=== PATIENT | male | born 1950 | race Caucasian/White ===

== ENCOUNTER 2024-01-13 08:36 | Outpatient (OUT) | payer MEDICARE, SELFPAY ==
--- NOTE | 2024-01-13 08:47 | CT_ITS ---
[address] [address] Patient Name: PATEL MILLER MRN: [id number] date: 1950 Sex: M Assigned Patient Location: CT Current Patient Location: CT Accession/Order Number: [id number] Exam Date: 01/13/2024 08:49 Report Date: 01/13/2024 12:51 At the request of: ANDRIY RAHMAN Procedure: CT lung screening low-dose EXAMINATION: CT lung screening low-dose HISTORY: Nicotine Dependence COMPARISON: 04/19/2020 TECHNIQUE: Axial, Coronal, and Sagittal images were created without the administration of IV contrast material.Dose reduction techniques were achieved by using automated exposure control and/or adjustment of mA and/or kV according to patient size and/or use of iterative reconstruction technique. FINDINGS: LUNGS: Interval increase in size of a now 6.8 mm pulmonary nodule medial basilar segment left lower lobe axial image 123 previously measuring 4 mm. Area of groundglass opacity noted in the right lower lobe measuring 1.1 cm, axial image 98, stable. Linear opacity in the lingula likely atelectasis and/or scar, stable PLEURA: No mass, effusion, or pneumothorax. VASCULATURE: No abnormality. NANCY: No mass or pathologic adenopathy. MEDIASTINUM: No mass or pathologic adenopathy. CARDIAC: No enlargement or pericardial effusion CORONARY ARTERIES: Coronary calcifications are moderate. AORTA: No aortic aneurysm. Mild to moderate calcific atherosclerosis CHEST WALL: No mass or axillary adenopathy BONES: No bone lesion or fracture. LIMITED ABDOMEN: No suspicious findings. Limited images of the upper abdomen. OTHER: Negative. CT/CT lung screening low-dose IMPRESSION: Interval increase in size of a now 6.8 mm left lower lobe pulmonary nodule previously 4 mm. Short interval follow-up is recommended. This lesion is likely not amenable to percutaneous biopsy and is too small to be visualized by PET scan LUNG SCREENING: Lung-RADS Category 3- Probably benign. Probably benign finding(s)- short term follow up suggested; includes nodules with a low likelihood of becoming a clinically active cancer. Six month LDCT. Electronically authenticated by: BENEDICTO EUBANKS Date: 01/13/2024 12:51
== END 2024-01-13 08:37 | disposition home or self-care (01) ==
LOC: CT 08:36
PROVIDERS: PCP Internal Medicine; Visit Provider Internal Medicine
DX: Z87.891 Personal history of nicotine dependence (principal)
CPT/HCPCS: 71271

== ENCOUNTER 2025-03-02 07:38 | Outpatient (OUT) | payer MEDICARE, SELFPAY ==
--- OUTSIDE RECORDS SUMMARY | 2025-03-02 07:42 | XMS_ITS | CCD ---
Author Organization [facility]ini[facility] Care Team Providers Care Ad Taker Name Role Phone LACEY, DR ASHRAF Admitting Unavailable VALONE, DR ASHRAF Attending Unavailable VALONE, DR ASHRAF Primary Care Unavailable VALONE, DR ASHRAF Consulting Unavailable ZIEBER, DR HARSHAD Mendieta Consulting Unavailable JARRELL RAHMAN Referring Unavailable JARRELL RAHMAN Primary Care Unavailable Lacey JRJarrell Primary Care Provider Germain MONOGRAM MAKER-CRosemary Attending Provider Jay Garsia MD Attending Provider Jay Garsia MD Admit Provider Jay Garsia MD Other Provider [phone] Jarrell Rahman Primary Care Unavailable Rosemary Groves Attending Unavailable Rosemary Groves Admitting Unavailable Jay Garsia Attending Unavailable Jay Garsia Admitting Unavailable Jarrell Rahman Primary Care Unavailable Jay Garsia Attending Unavailable Jay Garsia Admitting Unavailable Jarrell Rahman Primary Care Unavailable Allergies Allergy Classification Reported Allergen(s) Allergy Type Date of Onset Reaction(s) Facility (1 source) Bacitracin / Neomycin / Polymyxin B Drug Allergy 5 [facility] (1 source) Sulfonamides (Antibiotic) Drug allergy (disorder) 5 [facility] (1 source) ALLERGIES NOT ON FILE; Translations: [ALLERGIES NOT ON FILE] Propensity to adverse reactions (disorder) [facility] Repository (1 source) Bacitracin Drug Allergy 5 [facility] (3 sources) Neomycin; Translations: [neomycin] Drug Allergy 5 [facility] (3 sources) Sulfonamides (Antibiotic); Translations: [Sulfa (Sulfonamide Antibiotics)] Allergy to substance 5 [facility] (3 sources) polymyxin B; Translations: [polymyxin B] Allergy to substance 5 [facility] Medications Current Medications Medication Drug Class(es) Dates Sig (Normalized) Sig (Original) cholecalciferol 0.125 mg oral tablet (2 sources) Vitamin D Start: 02-10-2025 take 1 tablet by mouth every other day Cholecalciferol (Vitamin D3) (Vitamin D3) 125 mcg (5,000 unit) tablet Active 125 MCG PO .every other day February 10, 2025 12:00am Complies with drug therapy famotidine 20 mg oral tablet (2 sources) Histamine-2 Receptor Antagonist Start: 02-10-2025 take 1 tablet by mouth once daily as needed Famotidine 20 mg tablet Active 20 MG PO Daily as needed for acid reflux February 10, 2025 12:00am Complies with drug therapy montelukast 10 mg oral tablet (2 sources) Leukotriene Receptor Antagonist Start: 02-10-2025 take 1 tablet by mouth once daily as needed Montelukast 10 mg tablet Active 10 MG PO Daily as needed for allergy symptoms February 10, 2025 12:00am Complies with drug therapy olmesartan medoxomil 40 mg oral tablet (5 sources) Angiotensin 2 Receptor Kendrick Start: 01-18-2025 Olmesartan 40 mg tablet Active 20 MG PO Every morning January 18, 2025 12:00am Complies with drug therapy Start: 01-18-2025 Olmesartan 40 mg tablet Active MG PO January 18, 2025 12:00am Complies with drug therapy 60 actuat tiotropium 0.0025 mg/actuat inhalation spray (2 sources) Anticholinergic Start: 02-10-2025 take 1 puff(s) by inhalation once daily as needed for chronic obstructive pulmonary disease Tiotropium [place] (Spiriva Respimat) 2.5 mcg/actuation mist Active 2 PUFF INHALATION Daily as needed for copd February 10, 2025 12:00am Complies with drug therapy Problems Problem Classification Problem Date Documented Date Episodic/Chronic Aortic; peripheral; and visceral artery aneurysms (11 sources) Abdominal aortic aneurysm; Translations: [Abdominal aortic aneurysm (AAA)] 01-18-2025 Chronic Chronic obstructive pulmonary disease and bronchiectasis (5 sources) Chronic obstructive lung disease; Translations: [Chronic obstructive pulmonary disease, unspecified] 01-18-2025 Chronic Disorders of lipid metabolism (7 sources) Pure hypercholesterolemia, unspecified; Translations: [Hypercholesterolemia ] Onset: 11-20-2024 Chronic Essential hypertension (5 sources) Hypertensive disorder; Translations: [Essential (primary) hypertension] 01-18-2025 Chronic Osteoarthritis (5 sources) Osteoarthritis; Translations: [Unspecified osteoarthritis, unspecified site] 01-18-2025 Chronic Osteoporosis (9 sources) Age-related osteoporosis without current pathological fracture; Translations: [Senile osteoporosis] Onset: 06-04-2022 Chronic Other nutritional; endocrine; and metabolic disorders (5 sources) Obesity; Translations: [Obesity, unspecified] 01-18-2025 Chronic Residual codes; unclassified (1 source) History of cardiovascular surgery; Translations: [Other specified postprocedural states] 02-25-2025 Episodic Screening and history of mental health and substance abuse codes (8 sources) Ex-smoker; Translations: [Personal history of nicotine dependence] 01-18-2025 Episodic Unclassified (1 source) Please call the office to reschedule this appointment if this time does not work for you. Please call with any questions or concerns. Thank you. Unclassified (1 source) Abdominal aortic aneurysm, without rupture, unspecified; Translations: [Abdominal aortic aneurysm, without rupture, unspecified] Onset: 02-01-2025 Results Test Name Value Interpretation Reference Range Facility Basic Metabolic Panelon 01-30 Anion gap [Moles/Vol] 12.1 mmol/L Normal 6.0-15.0 [facility] Comment on above: Performed By: #### C BC, BMP #### [facility] [address] [id number] [place] Calcium [Mass/Vol] 8.4 mg/dL Low 8.6-10.3 [facility] Comment on above: Performed By: #### C BC, BMP #### [facility] [address] [id number] [place] Chloride [Moles/Vol] 106 mmol/L Normal 98-107 [facility] Comment on above: Performed By: #### C BC, BMP #### [address] CO2 [Moles/Vol] 21.0 mmol/L Normal 21.0-31.0 [facility] Comment on above: Performed By: #### C BC, BMP #### [address] Creatinine [Mass/Vol] 1.14 mg/dL Normal 0.70-1.30 [facility] Comment on above: Performed By: #### C BC, BMP #### [place] [address] [place] Creatinine Clr Calc Pharmacy 62.38 Normal [facility] Comment on above: Result Comment: PERF ORMED BY: [place] [address] PATHOLOGIST PRESS CLEANER ZAIRA JENSEN M.D. Performed By: #### C BC, BMP #### [address] GFR/1.73 sq M.predicted MDRD (S/P/Bld) [Vol rate/Area] mL/min/{1.73_m2} Normal [facility] Comment on above: Performed By: #### C BC, BMP #### [address] Glucose [Mass/Vol] 97 mg/dL Normal 70-100 [facility] Comment on above: Result Comment: [place] Glucose Reference Range is dependent on time and content of last meal. Glucose of more than 200 mg/dL in a nonstressed, ambulatory subject supports the diagnosis of Diabetes Mellitus. ADA recommended reference range Performed By: #### C BC, BMP #### [place] [address] [place] Potassium [Moles/Vol] 4.1 mmol/L Normal 3.5-5.1 [facility] Comment on above: Performed By: #### C BC, BMP #### [place] [address] [place] Sodium [Moles/Vol] 135 mmol/L Low 136-145 [facility] Comment on above: Performed By: #### C BC, BMP #### [address] Urea nitrogen [Mass/Vol] 17 mg/dL Normal 7-25 [facility] Comment on above: Performed By: #### C BC, BMP #### [address] Complete Blood Count Auto Di ffon 02-25-2025 Basophils (Bld) [#/Vol] 0.1 10*3/uL Normal 0.0-0.2 [facility] Comment on above: Result Comment: PERF ORMED BY: [place] [address] PATHOLOGIST PRESS CLEANER ZAIRA JENSEN M.D. Performed By: #### C BC, BMP #### [address] Basophils/100 WBC (Bld) 0.7 % Normal . [facility] Comment on above: Performed By: #### C BC, BMP #### [address] Eosinophils (Bld) [#/Vol] 0.0 10*3/uL Normal 0.0-0.45 [facility] Comment on above: Performed By: #### C BC, BMP #### [address] Eosinophils/100 WBC (Bld) 0.3 % Normal . [facility] Comment on above: Performed By: #### C BC, BMP #### [address] Erythrocyte distribution width (RBC) [Ratio] 13.2 % Normal 12.0-14.8 [facility] Comment on above: Performed By: #### C BC, BMP #### [address] Hematocrit (Bld) [Volume fraction] 34.8 % Low 38.8-50.0 [facility] Comment on above: Performed By: #### C BC, BMP #### [facility] [address] Hemoglobin (Bld) [Mass/Vol] 11.8 g/dL Low 13.0-17.0 [facility] Comment on above: Performed By: #### C BC, BMP #### [address] Lymphocytes (Bld) [#/Vol] 1.8 10*3/uL Normal 1.00-4.8 [facility] Comment on above: Performed By: #### C BC, BMP #### [facility] [address] Lymphocytes/100 WBC (Bld) 14.5 % Normal . [facility] Comment on above: Performed By: #### C BC, BMP #### [address] MCH (RBC) [Entitic mass] 32.2 pg Normal 27.5-35.2 [facility] Comment on above: Performed By: #### C BC, BMP #### [address] MCV (RBC) [Entitic vol] 94.8 fL Normal 83.5-101 [facility] Comment on above: Performed By: #### C BC, BMP #### [address] Mean Corpuscular HGB Conc 34.0 g/dL Normal 32.5-35.6 [facility] Comment on above: Performed By: #### C BC, BMP #### [address] Monocytes (Bld) [#/Vol] 1.0 10*3/uL High 0.0-0.8 [facility] Comment on above: Performed By: #### C BC, BMP #### [place] [address] [place] Monocytes/100 WBC (Bld) 8.3 % Normal . [facility] Comment on above: Performed By: #### C BC, BMP #### [facility] [address] [place] [address] [place] Neutrophils (Bld) [#/Vol] 9.5 10*3/uL High 1.8-7.7 [facility] Comment on above: Performed By: #### C BC, BMP #### [facility] [address] [place] [address] [place] Neutrophils/100 WBC (Bld) 76.2 % Normal . [facility] Comment on above: Performed By: #### C TIEN, BMP #### [facility] [address] [place] [address] [place] NRBC% 0.1 /100{WBC} Normal 0-0.[address] [facility] Comment on above: Performed By: #### C TIEN, BMP #### [place] [address] [place] Platelet mean volume (Bld) [Entitic vol] 7.1 fL Normal 6.6-10.1 [facility] Comment on above: Performed By: #### C TIEN, BMP #### [facility] [address] [place] [address] [place] Platelets (Bld) [#/Vol] 271 10*3/uL Normal 150-450 [facility] Comment on above: Performed By: #### C TIEN, BMP #### [place] [address] [place] RBC (Bld) [#/Vol] 3.67 10*6/uL Low 3.90-5.60 [facility] Comment on above: Performed By: #### C TIEN, BMP #### [place] [address] [place] WBC (Bld) [#/Vol] 12.4 10*3/uL High 4.1-10.5 [facility] Comment on above: Performed By: #### C TIEN, BMP #### [place] [id number] [place] White Blood Count 12.4 [CFU]/mL High 4.1-10.5 [facility] Comment on above: Performed By: #### C TIEN, BMP #### [place] [address] [place] ABO/Rh Retypeon 02-24-2025 ABO/RH Recheck Result Positive Normal [facility] Comment on above: Result Comment: PERF ORMED BY: [place] [address] PATHOLOGIST PRESS CLEANER ZAIRA JENSEN M.D. Basic Metabolic Panelon 01-29 GFR/1.73 sq M.predicted MDRD (S/P/Bld) [Vol rate/Area] mL/min/{1.73_m2} Normal [facility] Comment on above: Performed By: #### B MP, CBC #### [address] Basophils [#/volume] in Bloo d by Automated countOrdered By: Jay Garsia on 02-10-2025 Basophils (Bld) [#/Vol] 0.1 10*3/uL Normal 0.0-0.2 [facility] Comment on above: Result Comment: PERF ORMED BY: [place] [address] PATHOLOGIST PRESS CLEANER ZAIRA JENSEN M.D. Performed By: #### B MP, CBC #### [facility] [address] [place] [address] [place] Basophils/100 leukocytes in Blood by Automated countOrdered By: Jay Garsia on 02-10-2025 Basophils/100 WBC (Bld) 1.4 % Normal . [facility] Comment on above: Performed By: #### B MP, CBC #### [facility] [address] [place] [address] [place] Calcium [Mass/volume] in Ser um or PlasmaOrdered By: Jay Garsia on 02-10-2025 Calcium [Mass/Vol] 9.5 mg/dL Normal 8.6-10.3 [facility] Comment on above: Result Comment: PERF ORMED BY: [place] [address] PATHOLOGIST PRESS CLEANER ZAIRA JENSEN M.D. Performed By: #### B MP, CBC #### [address] Carbon dioxide, total [Moles /volume] in Serum or PlasmaOrdered By: Jay Garsia on 02-10-2025 CO2 [Moles/Vol] 28.9 mmol/L Normal 21.0-31.0 [facility] Comment on above: Performed By: #### B MP, CBC #### [address] Chloride [Moles/volume] in S rodrick or PlasmaOrdered By: Jay Garsia on 02-10-2025 Chloride [Moles/Vol] 102 mmol/L Normal 98-107 [facility] Comment on above: Performed By: #### B MP, CBC #### [address] Complete Blood Count Auto Di ffon 02-10-2025 Mean Corpuscular HGB Conc 33.4 g/dL Normal 32.5-35.6 [facility] Comment on above: Performed By: #### B MP, CBC #### [place] [address] [place] NRBC% 0.2 /100{WBC} Normal 0-0.[address] [facility] Comment on above: Performed By: #### B MP, CBC #### [place] [address] [place] White Blood Count 6.5 [CFU]/mL Normal 4.1-10.5 [facility] Comment on above: Performed By: #### B MP, CBC #### [place] [address] [place] Creatinine [Mass/volume] in Serum or PlasmaOrdered By: Jay Garsia on 02-10-2025 Creatinine [Mass/Vol] 1.25 mg/dL Normal 0.70-1.30 [facility] Comment on above: Performed By: #### B MP, CBC #### [address] [place] [address] [facility] ECG 12 lead ECGon 02-10-2025 ECG 12 lead ECG [facility] [place] [address] [place], [place] [id number] Electrocardiograph Report Signed Patient: Mihir Adan MR#: [id number] : 1950 Acct:[id number] Age/Sex: 74 / M ADM Date: 02/10/25 Loc: Room: Type: [facility] Attending Dr: Jay Garsia MD Ordering Provider: Jay Garsia MD Date of Service: 02/10/25 ECG/ECG 12 lead ECG: pst Copies to: Test Reason : Blood Pressure : */* mmHG Vent. Rate : 65 BPM Atrial Rate : 65 BPM P-R Int : 170 ms QRS Dur : 140 ms QT Int : 428 ms P-R-T Axes : 72 -50 46 degrees QTcB Int : 445 ms Normal sinus rhythm with sinus arrhythmia Right bundle branch block Left anterior fascicular block Bifascicular block Inferior infarct , age undetermined Abnormal ECG No previous ECGs available Confirmed by CLARA BAUMAN [facility], SEAN ([id number]) on 02/10/2025 5:29:30 PM Referred By: Electronically Signed By: SEAN NG MD [facility] Transcribed By: MUS Signed By Sean Ng MD, FACC 02/10/25 1729 Normal [facility] Eosinophils [#/volume] in Bl ood by Automated countOrdered By: Jay Garsia on 02-10-2025 Eosinophils (Bld) [#/Vol] 0.3 10*3/uL Normal 0.0-0.45 [facility] Comment on above: Performed By: #### B MP, CBC #### [facility] [address] [place], [place] [id number] [place] Eosinophils/100 leukocytes i n Blood by Automated countOrdered By: Jay Garsia on 02-10-2025 Eosinophils/100 WBC (Bld) 5.0 % Normal . [facility] Comment on above: Performed By: #### B MP, CBC #### [facility] [address] Erythrocyte distribution wid th [Ratio] by Automated countOrdered By: Jay Garsia on 02-10-2025 Erythrocyte distribution width (RBC) [Ratio] 14.0 % Normal 12.0-14.8 [facility] Comment on above: Performed By: #### B VINEET, CBC #### [address] Erythrocytes [#/volume] in B lood by Automated countOrdered By: Jay Garsia on 02-10-2025 RBC (Bld) [#/Vol] 4.31 10*6/uL Normal 3.90-5.60 [facility] Comment on above: Performed By: #### B VINEET, CBC #### [address] Glucose [Mass/volume] in Ser um or PlasmaOrdered By: Jay Garsia on 02-10-2025 Glucose [Mass/Vol] 98 mg/dL Normal 70-100 [facility] Comment on above: ADA recommended refe rence rangeRandom Glucose Reference Range is dependent on time and content of last meal. Glucose of more than 200 mg/dL in a nonstressed, ambulatory subject supports the diagnosis of Diabetes Mellitus. Result Comment: [place] Glucose Reference Range is dependent on time and content of last meal. Glucose of more than 200 mg/dL in a nonstressed, ambulatory subject supports the diagnosis of Diabetes Mellitus. ADA recommended reference range Performed By: #### B VINEET, CBC #### [address] Hematocrit [Volume Fraction] of Blood by Automated countOrdered By: Jay Garsia on 02-10-2025 Hematocrit (Bld) [Volume fraction] 41.3 % Normal 38.8-50.0 [facility] Comment on above: Performed By: #### B VINEET, CBC #### [address] Hemoglobin [Mass/volume] in BloodOrdered By: Jay Garsia on 02-10-2025 Hemoglobin (Bld) [Mass/Vol] 13.8 g/dL Normal 13.0-17.0 [facility] Comment on above: Performed By: #### B MP, CBC #### [address] Leukocytes [#/volume] correc gregg for nucleated erythrocytes in Blood by Automated counOrdered By: Jay Garsia on 02-10-2025 WBC corrected for nucl RBC Auto (Bld) [#/Vol] 6.5 10*3/uL 4.1-10.5 [facility] Leukocytes [#/volume] in Blo od by Automated countOrdered By: Jay Garsia on 02-10-2025 WBC (Bld) [#/Vol] 6.5 10*3/uL Normal 4.1-10.5 [facility] Comment on above: Performed By: #### B MP, CBC #### [address] Lymphocytes [#/volume] in Bl ood by Automated countOrdered By: Jay Garsia on 02-10-2025 Lymphocytes (Bld) [#/Vol] 1.7 10*3/uL Normal 1.00-4.8 [facility] Comment on above: Performed By: #### B MP, CBC #### [address] Lymphocytes/100 leukocytes i n Blood by Automated countOrdered By: Jay Garsia on 02-10-2025 Lymphocytes/100 WBC (Bld) 26.1 % Normal . [facility] Comment on above: Performed By: #### B MP, CBC #### [place] [address] [place] MCH [Entitic mass] by Automa gregg countOrdered By: Jay Garsia on 02-10-2025 MCH (RBC) [Entitic mass] 32.0 pg Normal 27.5-35.2 [facility] Comment on above: Performed By: #### B MP, CBC #### [address] MCHC Auto (RBC) [Mass/Vol]Or dered By: Jay Garsia on 02-10-2025 MCHC (RBC) [Mass/Vol] 33.4 g/dL 32.5-35.6 [facility] MCV [Entitic volume] by Auto mated countOrdered By: Jay Garsia on 02-10-2025 MCV (RBC) [Entitic vol] 95.7 fL Normal 83.5-101 [facility] Comment on above: Performed By: #### B MP, CBC #### [facility] [address] [place] [address] [place] Monocytes [#/volume] in Bloo d by Automated countOrdered By: Jay Garsia on 02-10-2025 Monocytes (Bld) [#/Vol] 0.7 10*3/uL Normal 0.0-0.8 [facility] Comment on above: Performed By: #### B MP, CBC #### [place] [address] [place] Monocytes/100 leukocytes in Blood by Automated countOrdered By: Jay Garsia on 02-10-2025 Monocytes/100 WBC (Bld) 11.5 % Normal . [facility] Comment on above: Performed By: #### B MP, CBC #### [address] Neutrophils [#/volume] in Bl ood by Automated countOrdered By: Jay Garsia on 02-10-2025 Neutrophils (Bld) [#/Vol] 3.6 10*3/uL Normal 1.8-7.7 [facility] Comment on above: Performed By: #### B MP, CBC #### [place] [address] [place] Neutrophils/100 leukocytes i n Blood by Automated countOrdered By: Jay Garsia on 02-10-2025 Neutrophils/100 WBC (Bld) 56.0 % Normal . [facility] Comment on above: Performed By: #### B MP, CBC #### [address] No Panel InformationOrdered By: Jay Garsia on 02-10-2025 Estimated GFR (CKD-EPI) > 60.0 mL/Min [facility] Creatinine Clearance (Chem N/A [facility] Nucleated erythrocytes [Pres ence] in Blood by Automated countOrdered By: Jay Garsia on 02-10-2025 Nucleated RBC Auto Ql (Bld) 0.2 /100{WBC} 0-0.5 [facility] PST Type and Screenon 2024 ABO and Rh group Nom (Bld) Blood group O Rh(D) positive Normal [facility] Comment on above: Order Comment: Date of Surgery: [id number] Platelet mean volume [Entiti c volume] in Blood by Automated countOrdered By: Jay Garsia on 02-10-2025 Platelet mean volume (Bld) [Entitic vol] 7.0 fL Normal 6.6-10.1 [facility] Comment on above: Performed By: #### B MP, CBC #### [facility] [address] [place] [address] Platelets [#/volume] in Bloo d by Automated countOrdered By: Jay Garsia on 02-10-2025 Platelets (Bld) [#/Vol] 363 10*3/uL Normal 150-450 [facility] Comment on above: Performed By: #### B MP, CBC #### [facility] [address] [place] [address] Potassium [Moles/volume] in Serum or PlasmaOrdered By: Jay Garsia on 02-10-2025 Potassium [Moles/Vol] 4.7 mmol/L Normal 3.5-5.1 [facility] Comment on above: Performed By: #### B MP, CBC #### [facility] [address] Serum or plasma anion gap de terminationOrdered By: Jay Garsia on 02-10-2025 Anion gap [Moles/Vol] 7.8 mmol/L Normal 6.0-15.0 [facility] Comment on above: Performed By: #### B MP, CBC #### [address] [place] [address] [facility] Sodium [Moles/volume] in Ser um or PlasmaOrdered By: Jay Garsia on 02-10-2025 Sodium [Moles/Vol] 134 mmol/L Low 136-145 [facility] Comment on above: Performed By: #### B MP, CBC #### [facility] [address] [id number] [facility] Urea nitrogen [Mass/volume] in Serum or PlasmaOrdered By: Jay Garsia on 02-10-2025 Urea nitrogen [Mass/Vol] 29 mg/dL High 7-25 [facility] Comment on above: Performed By: #### B MP, CBC #### [facility] [address] [place] [id number] [facility] CT angio abdomen pelvison CT angio abdomen pelvis [facility] [place] [address] [place] [address] CT Scan Report Signed Patient: Mihir Adan MR#: [id number] : 1950 Acct:[id number] Age/Sex: 74 / M ADM Date: 02/01/25 Loc: CT Room: Type: [facility] Attending Dr: Rosemary Groves MONOGRAM MAKER-C Copies to: Rosemary Groves APRN Ordering Provider: Rosemary Groves APRN Date of Service: 02/01/25 CT/CT angio abdomen pelvis: I71.40 - Abdominal aortic aneurysm, without rupture, unsp... CTA abdomen and pelvis . CLINICAL DATA: New diagnosis of AAA TECHNIQUE: CT of the abdomen and pelvis was initially performed without contrast. Intravenous contrast-enhanced CT angiography of the abdomen and pelvis was then performed. Axial, sagittal, coronal and volume-rendered three-dimensional reconstructions were created and reviewed. This CT exam was performed using one or more of the following dose reduction techniques: Automated exposure control, adjustment of the mA and/or kV according to patient size, or use of iterative reconstruction technique. COMPARISON: None available for direct comparison. FINDINGS: Lung Bases: Mild lung scarring. Organs:Liver gallbladder spleen[pancreas and adrenal glands appear unremarkable. Cystic changes involving the kidneys. A fusiform type infrarenal abdominal aortic aneurysm is present measuring 5.1 cm with associated partial thrombus and calcification. This appears to taper at the level of the iliac bifurcation with aneurysmal dilatation of the right common iliac artery measuring 2 cm. Moderate calcification involving the iliac vasculature bilaterally. No critical stenosis or occlusion involving the major visceral branches of the abdominal aorta. GI: Stomach is grossly unremarkable. Small bowel appears nondilated. No acute colonic abnormality.[ Pelvis:[Urinary bladder is grossly unremarkable. Prostatomegaly.] Peritoneum/Retroper itoneum:No free air or free fluid or lymphadenopathy.[ Abd wall/Bones:Abdomina l wall... No acute findings. Osseous structures demonstrate degenerative change. Chronic compression appearing deformity involving the L2 vertebral body. Scoliosis.[ CT/CT angio abdomen pelvis IMPRESSION: Fusiform type infrarenal abdominal aortic aneurysm measuring 5.1 cm. 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 Impression dictated by: Samm Meza Jr., TonaOBlair 02/01/2025 10:11 AM Dictation Location: [place] [address] Transcribed By: [facility] 02/01/25 1011 Dictated By: Samm Meza Jr, DO 02/01/25 1007 Signed By: 02/01/25 1011 Normal [facility] ISTAT XRay CREon 02-01-2025 ISTAT GFR 49.159 Normal [facility] Comment on above: Result Comment: PERF ORMED BY: [place] [address] PATHOLOGIST PRESS CLEANER ZAIRA JENSEN M.D. Performed By: #### I SCRE #### [address] No Panel InformationOrdered By: Rosemary Groves on 02-01-2025 Bedside Estimated GFR (eGFR) 49.159 [facility] Whole blood creatinine measu rementOrdered By: Rosemary Groves on 02-01-2025 Creatinine [Mass/Vol] 1.5 mg/dL High 0.6-1.3 [facility] Comment on above: ER/ESD physician is notified/shown all ISTAT results.Critical values may be confirmed by laboratory testing ifdeemed necessary by ER attending doctor. Result Comment: ER/E SD physician is notified/shown all ISTAT results. Critical values may be confirmed by laboratory testing if deemed necessary by ER attending doctor. Performed By: #### I SCRE #### [place] [id number] [facility] CT CARDIAC SCORING WO IV CON TRASTon 11-20-2024 CT CARDIAC SCORING WO IV CONTRAST Interpreted By: Jean Magana, ADDENDUM: Technical: The following is to serve as an over-read for an unenhanced cardiac CT, to evaluate the extravascular structures. Contiguous unenhanced CT sections are performed from level the tesha to the upper abdomen. Impression: There is a 5 mm subpleural nodular density in the medial left lower lobe (image 203). There is linear bibasilar atelectasis. There is no sign of pathologic lymph node enlargement. There is no pericardial or pleural effusion. Images through the upper abdomen are unremarkable. The visualized osseous structures are intact. Impression: 5 mm subpleural nodular density the lower lobe. Incidental Finding: A non-calcified pulmonary nodule/multiple non-calcified pulmonary nodules measuring less than 6 mm, likely benign. (-YCF-) Instructions: No further follow-up is required, however, if the patient has high risk factors for primary lung malignancy, follow-up noncontrast CT scan chest in 12 months may be obtained. (Anish Friedmanhoapolonia et al., Guidelines for management of incidental pulmonary nodules detected on CT images: From the Fleischner Society 2017, Radiology. 2017 [place];284 (1):228-243.) FLEISCHNER.ACR.IF.1 The extravascular structures are otherwise unremarkable. Signed by: Jean Magana 11/20/2024 8:56 PM -------- ORIGINAL REPORT -------- Dictation workstation: [id number] Interpreted By: Jean Hamilton, STUDY: CT CARDIAC SCORING WO IV CONTRAST; 11/20/2024 3:56 pm INDICATION: Signs/Symptoms:CARD IO SCREENING. COMPARISON: None. ACCESSION NUMBER(S): [id number] ORDERING CLINICIAN: JARRELL RAHMAN TECHNIQUE: Using prospective ECG gating, CT scan of the coronary arteries was performed without intravenous contrast. Coronary calcium scoring was performed according to the method of Agatston. CT Dose-Length Product (DLP): 65.1 mGy*cm CT Dose Reduction Employed: Yes, prospective gating, iterative reconstruction. FINDINGS: The score and distribution of calcium in the coronary arteries is as follows: LM 3 LAD 385 LCx 302 RCA 152 Total 842 The visualized ascending thoracic aorta measures 3.8 cm in diameter. The heart is normal in size. No pericardial effusion is present. Mitral annular calcification. Calcified aortic valve. Aortic valve calcium score 489. The main pulmonary artery, right and left pulmonary artery are normal in size. IMPRESSION: 1. Coronary artery calcium score of 842*. 2. WILKS 81st percentile for age, gender, and race in asymptomatic patients. 3. Aortic valve calcium score 489. *Coronary Artery Agatston score Score risk Very low 1-99 Mildly increased 100-299 Moderately increased >300 Moderate to severely increased >800 Edison et al. JCCT 2016 (http://dx.doi.org/ 10.1016/j.jcct.2016 .11.003) WILKS Percentile In general, greater than 75th percentile for age, gender, and race is considered to be a higher relative risk and higher lifetime risk condition. Greater than 75th percentile=moderate to severely increased relative risk irrespective of the score. Advise using WILKS 10 year CHD risk calculator below for better discrimination of risk. WILKS 10-Year CHD Risk with Coronary Artery Calcification can be calcuate using link below https://www.wilks-ut lbi.org/MESACHDRisk /MesaRiskScore/Risk Score.aspx Zeeshan coto al. JACC 2014 (http://dx.doi.org/ 10.1016/j.j acc.2015.08.035) Reading Physician Assistant Surgery: Dr. Jean Hamilton, Date: 11/20/2024 4:55 pm Signed by: Jean Hamilton 11/20/2024 4:57 PM Dictation workstation: [id number] [facility] XR DEXA BONE DENSITYon 06-04 XR DEXA BONE DENSITY EXAMINATION: XR DEXA BONE DENSITY, 06/04/2022 8:28 AM EST HISTORY: Senile osteoporosis COMPARISON: DEXA bone densitometry 01/19/2019 TECHNIQUE: Dual-energy X-ray absorptiometry (DEXA) bone density study performed for the axial skeleton. FINDINGS: SPINE ANALYSIS: Average bone mineral density is 1.160 g/cm2. T-score (standard deviation relative to young adult mean): -0.7 . -4.9% change since prior study. HIP ANALYSIS: Lowest bone mineral density is within the left femoral neck, 0.738 g/cm2. T-score (standard deviation relative to young adult mean): -2.6 . -3.9% change is prior study. IMPRESSION: World [employer] Organization Classification: Osteoporosis - High Fracture Risk Electronically authenticated by: HARSHAD MCCARTHY Date: 2022-06-04 08:51 Normal [facility] Vital Signs Date Time Vital Sign Value Performing Clinician Faci lity 02-25-2025 09:13-0400 Body temperature 97.5 [degF] Jarrell Nehakatherine COBIAN Work Phone: [facility] 02-25-2025 09:13-0400 Diastolic blood pressure 62 mm[Hg] Jarrell Rahman JR Work Phone: [facility] 02-25-2025 09:13-0400 Heart rate 78 /min Jarrell Lacey Work Phone: [facility] 02-25-2025 09:13-0400 Respiratory rate 17 /min Jarrell Lacey Work Phone: [facility] 02-25-2025 09:13-0400 SaO2% (BldA) [Mass fraction] 98 % Jarrell Rahman JR Work Phone: [facility] 02-25-2025 09:13-0400 Systolic blood pressure 113 mm[Hg] Jarrell Solomonkatherine Work Phone: [facility] 02-25-2025 05:09-0400 Body weight 81.9 kg Jarrell Rahman JR Work Phone: [facility] 02-24-2025 09:54-0400 Inhaled oxygen flow rate 6 L/min Jarrell Rahman JR Work Phone: [facility] 02-24-2025 06:40-0400 Body height 181.61 cm Jarrell Rahman JR Work Phone: [facility] 02-08-2025 11:08-0400 Body height 180.97 cm Jarrell Rahman JR Work Phone: [facility] 02-08-2025 11:08-0400 Body mass index (BMI) [Ratio] 25.4 kg/m2 Jarrell Rahman JR Work Phone: [facility] 02-08-2025 11:08-0400 Body temperature 97.8 [degF] Jarrell Rahman JR Work Phone: [facility] 02-08-2025 11:08-0400 Body weight 83.46 kg Jarrell Rahman JR Work Phone: [facility] 02-08-2025 11:08-0400 Diastolic blood pressure 68 mm[Hg] Jarrell Rahman JR Work Phone: [facility] 02-08-2025 11:08-0400 Heart rate 80 /min Jarrell Rahman JR Work Phone: [facility] 02-08-2025 11:08-0400 SaO2% (BldA) [Mass fraction] 98 % Jarrell Rahman JR Work Phone: [facility] 02-08-2025 11:08-0400 Systolic blood pressure 114 mm[Hg] Jarrell Rahman JR Work Phone: [facility] 01-18-2025 15:18-0400 Body height 180.34 cm Jarrell Rahman JR Work Phone: [facility] 01-18-2025 15:18-0400 Body mass index (BMI) [Ratio] 25.7 kg/m2 Jarrell Rahman JR Work Phone: [facility] 01-18-2025 15:18-0400 Body temperature 98 [degF] Jarrell Lacey COBIAN Work Phone: [facility] 01-18-2025 15:18-0400 Body weight 83.91 kg Jarrell Nehakatherine COBIAN Work Phone: [facility] 01-18-2025 15:18-0400 Diastolic blood pressure 78 mm[Hg] Jarrell Rahman JR Work Phone: [facility] 01-18-2025 15:18-0400 Heart rate 72 /min Jarrell Rahman JR Work Phone: [facility] 01-18-2025 15:18-0400 SaO2% (BldA) [Mass fraction] 98 % Jarrell Rahman JR Work Phone: [facility] 01-18-2025 15:18-0400 Systolic blood pressure 110 mm[Hg] Jarrell Rahman JR Work Phone: [facility] Encounters Encounter Date Encounter Type Care Provider Facility Start: 02-24-2025 Non-patient / Non-visit Jay wayne MD -[facility] Work Phone: Start: 02-24-2025 End: 02-25-2025 Evaluation and management of inpatient Jay Garsia Facility:[facility] Start: 02-10-2025 End: 02-10-2025 Patient encounter procedure Jay Garsia MD -Pre-Surgical Testing Work Phone: Start: 02-10-2025 End: 02-10-2025 ambulatory Jarrell Caal Lacey Work Phone: [facility] Work Phone: Start: 02-10-2025 Encounter for preprocedural laboratory examination Jay Garsia [facility] Start: 02-08-2025 End: 02-08-2025 ambulatory Jarrell Caal Lacey Work Phone: [facility] Work Phone: Start: 02-08-2025 End: 02-08-2025 Patient encounter procedure Jay Garsia MD -[facility] Work Phone: Start: 02-01-2025 End: 02-01-2025 Patient encounter procedure Rosemary Groves APRN -CT Scan [facility] [place] Work Phone: Start: 02-01-2025 End: 02-01-2025 ambulatory Jarrell Rahman JR Work Phone: [facility] Work Phone: Start: 01-18-2025 End: 01-18-2025 ambulatory Jarrell Rahman JR Work Phone: [facility] Work Phone: Start: 01-18-2025 End: 01-18-2025 Patient encounter procedure Rosemary Groves FOUNDRY FINISHER -[facility] Work Phone: Start: 11-20-2024 End: 11-20-2024 ambulatory JARRELL RAHMAN [facility] Start: 06-04-2022 End: 06-05-[address] JARRELL RAHMAN Facility:[facility] Procedures Date Procedure Procedure Detail Performing Clinician Start: 02-10-2025 Antibody screen Jarrell Rahman Comment on above: Order Comment: Date of Surgery: [id number] Result Comment: PERF ORMED BY: [facility] [address] [place] [address] PATHOLOGIST PRESS CLEANER ZAIRA JENSEN M.D. Start: 02-01-2025 Computed tomography of abdomen and pelvis with contrast Jarrell Rahman JR Work Phone: History of tonsillectomy S/P tonsillectom y Jarrell Rahman JR Work Phone: Plan of Treatment Date Care Activity Detail Author Start: 02-25-2025 [facility] Start: 02-24-2025 Hospital admission [facility] Start: 02-24-2025 [facility] Patient Education Abdominal aort ic aneurysm Aortic aneurysm repair - Discharge instructions Know your Meds [facility] Work Phone: Patient referral [facility] Work Phone: Payers Date Payer Category Payer Self-pay 1959 Unknown [id number] 1950 Unknown [id number] 1950 Unknown [id number] Unknown [id number] [id number] Unknown [id number] [id number] [id number] Unknown [id number] 2.16.8 [id number] Social History Date Type Detail Facility Start: 01-18-2025 End: 02-24-2025 Tobacco smoking status NHIS Ex-smoker (finding) [facility] Sex Male (finding) [facility] Start: 1950 Sex Assigned At Male F [facility] Start: 07-01-1968 End: 07-01-2023 History of tobacco use [facility] Work Phone: Start: 02-25-2025 SDOH Follow up SDOH Follow up [facility] Work Phone: Radiology Diagnostic study note 02-01-2025 Note Date & Type Note Facility 02-01-2025 Radiology Diagnostic study note [facility] [place] [address] CT Scan Report Signed Patient: Mihir Adan MR#: [id number] : 1950 Acct:[id number] Age/Sex: 74 / M ADM Date: 5 Loc: CT Room: Type: [facility] Attending Dr: Rosemary Groves MONOGRAM MAKER-C Copies to: Rosemary Groves APRN~ Ordering Provider: Rosemary Groves APRN Date of Service: 02/01/25 CT/CT angio abdomen pelvis: I71.40 - Abdominal aorticaneurysm, without rupture, unsp... CTA abdomen and pelvis . CLINICAL DATA: New diagnosis of AAA TECHNIQUE: CT of the abdomen and pelvis was initially performed without contrast. Intravenous contrast-enhanced CT angiography of the abdomen and pelvis was then performed. Axial, sagittal, coronal and volume-rendered three-dimensional reconstructions were created and reviewed. This CT exam was performed using one or more of the following dose reduction techniques: Automated exposure control, adjustment of the mA and/or kV according to patient size, or use of iterative reconstruction technique. COMPARISON: None available for direct comparison. FINDINGS: Lung Bases: Mild lung scarring. Organs:Liver gallbladder spleen[pancreas and adrenal glands appear unremarkable. Cystic changes involving the kidneys. A fusiform type infrarenal abdominal aortic aneurysm is present measuring 5.1 cm with associated partial thrombus and calcification. This appears to taper at the level of the iliac bifurcation with aneurysmal dilatation of the right common iliac artery measuring 2 cm. Moderate calcification involving the iliac vasculature bilaterally. No critical stenosis or occlusion involving the major visceral branches of the abdominal aorta. GI: Stomach is grossly unremarkable. Small bowel appears nondilated. No acute colonic abnormality.[ Pelvis:[Urinary bladder is grossly unremarkable. Prostatomegaly.] Peritoneum/Retroperitoneum:No free air or free fluid or lymphadenopathy.[ Abd wall/Bones:Abdominal wall... No acute findings. Osseous structures demonstrate degenerative change. Chronic compression appearing deformity involving the L2 vertebral body. Scoliosis.[ CT/CT angio abdomen pelvis IMPRESSION: Fusiform type infrarenal abdominal aortic aneurysm measuring 5.1 cm. 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 Impression dictated by: Samm Meza Jr., D.OBlair 02/01/2025 10:11 AM Dictation Location: [place] [address] Transcribed By: [facility] 02/01/25 1011 Dictated By: Samm Meza Jr, DO 02/01/25 1007 Signed By: 02/01/25 1011 [facility] Evaluation note 01-18-2025 Note Date & Type Note Facility 01-18-2025 Evaluation note Diagnosis Onset Date Resolution AAA (abdominal aortic aneurysm) acute January 18, 2025 2:31pm Former smoker acute January 18, 2025 2:31pm [facility] Work Phone: Evaluation note 01-18-2025 Note Date & Type Note Facility 01-18-2025 Evaluation note Diagnosis Onset Date Resolution AAA (abdominal aortic aneurysm) acute January 18, 2025 2:31pm Former smoker acute January 18, 2025 2:31pm AAA (abdominal aortic aneurysm) acute February 08 11:02am [facility] Work Phone: Evaluation note Note Date & Type Note Facility Evaluation note No assessment information availa ble [facility] Work Phone: Hospital Discharge instructions Note Date & Type Note Facility Hospital Discharge instructions Additional Instructions Rest. Take it easy. Avoid strenuous activity x 2 weeks. May shower tomorrow. No soaking in bath, no hot tub, no swimming. Expect bruising. Ice for comfort. Tylenol as needed. [facility] Work Phone: Reason for referral (narrative) Note Date & Type Note Facility Reason for referral (narrative) No reason for referral information available [facility] Work Phone: Summary Purpose Family History No Family History Records Found Relationship Condition Age at Onset Recorded Date/T abebe father Malignant neoplasm of prostate Unknown Malignant neoplasm of lung Unknown Abdominal aortic aneurysm (AAA) Unknown mother Malignant neoplasm of colon Unknown brother Abdominal aortic aneurysm (AAA) Unknown Advance Directives No Advanced Directives Records Found Advance Directive Response Recorded Date/ Time Advance Directives No December 28 12:43pm Chief Complaint and Reason for Visit Chief Complaint Admit Date ref by Jarrell Rahman for AAA January 18, 2025 2:31pm Chief Complaint Admit Date ref by Jarrell Rahman for AAA January 18, 2025 2:31pm I71.40 February 01, 2025 7:3 4am Reason for Visit Admit Date AAA (abdominal aortic aneurysm) December 2:31pm Former smoker January 18, 2025 2:31 pm Chief Complaint Admit Date ref by Jarrell Rahman for AAA January 18, 2025 2:31pm I71.40 February 01, 2025 7:3 4am F/U after imaging on 02/01February 08, 2025 11:02am Chief Complaint Admit Date ref by Jarrell Rahman for AAA January 18, 2025 2:31pm I71.40 February 01, 2025 7:3 4am F/U after imaging on 02/01February 08, 2025 11:02am AAA February 10, 2025 10 :18am Reason for Visit Admit Date AAA (abdominal aortic aneurysm) December 2:31pm Former smoker January 18, 2025 2:31 pm AAA (abdominal aortic aneurysm) January 292024 11:02am Chief Complaint Admit Date ref by Jarrell Rahman for AAA January 18, 2025 2:31pm I71.40 February 01, 2025 7:3 4am F/U after imaging on 02/01February 08, 2025 11:02am AAA February 10, 2025 10 :18am AAA February 24, 2025 5: 59am Additional Source Comments (unrecognized sect ion and content) No Status Records FoundNo Status Records FoundNo Status Records Found INFORMATION SOURCE (unrecogn ized section and content) DATE CREATED AUTHOR 06/09/2022 [facility] DATE CREATED AUTHOR AUTHOR'S ORGANIZ ATION 11/27/2024 [facility] DATE CREATED AUTHOR AUTHOR'S ORGANIZ ATION 02/25/2025 [facility] Care Teams (unrecognized sec tion and content) Team Status: Active Member Role Status Dates Jarrell Rahman JR DO Primary Care Provider Active Team Status: Inactive Member Role Status Dates Jarrell Rahman JR DO Primary Care Provider Active Start: January 18, 2025 End: January 18, 2025 DONNA Dawkins Attending Provider Active Start: January 18, 2025 End: January 18, 2025 Team Status: Inactive Member Role Status Dates Jarrell Rahman JR DO Primary Care Provider Active Start: February 01, 2025 End: February 01, 2025 DONNA Dawkins Attending Provider Active Start: February 01, 2025 End: February 01, 2025 Team Status: Inactive Member Role Status Dates Jarrell Rahman JR DO Primary Care Provider Active Start: February 08, 2025 End: February 08, 2025 Jay Garsia MD Attending Provider Active S tart: February 08, 2025 End: February 08, 2025 Team Status: Inactive Member Role Status Dates Jarrell Rahman JR DO Primary Care Provider Active Start: February 10, 2025 End: February 10, 2025 Jay Garsia MD Attending Provider Active S tart: February 10, 2025 End: February 10, 2025 Team Status: Active Member Role Status Dates Jarrell Rahman JR DO Primary Care Provider Active Start: February 24, 2025 Jay Garsia MD Admit Provider Active Start : February 24, 2025 Jay Garsia MD Attending Provider Active S tart: February 24, 2025 Jay Garsia MD Other Provider Active Start : February 24, 2025 Goals (unrecognized section and content) Goals may be documented in a n alternate sectionGoals may be documented in an alternate sectionGoals may be documented in an alternate sectionGoals may be documented in an alternate sectionGoals may be documented in an alternate section FOR RECORDS PERTAINING TO PATIENTS WHO ARE OR HAVE BEEN ENROLLED IN A CHEMICAL DEPENDENCY/SUBSTANCEABUSE PROGRAM, SOME INFORMATION MAY BE OMITTED. This clinical summary was aggregated from multiple sources. Caution should be exercised in using it in the provision of clinical care. This summary normalizes information from multiple sources, and as a consequence, information in this document may materially change the coding, format and clinical context of patient data. In addition, data may be omitted in some cases. CLINICAL DECISIONS SHOULD BE BASED ON THE PRIMARY CLINICAL RECORDS. [employer] provides no warranty or guarantee of the accuracy or completeness of information in this document.
== END 2025-03-02 07:39 | disposition home or self-care (01) ==
LOC: RAD 07:39
PROVIDERS: PCP Internal Medicine; Visit Provider Internal Medicine
DX: M81.0 Age-related osteoporosis without current pathological fracture (principal)
CPT/HCPCS: 77080